=== PATIENT | male | born 1965 | race Caucasian/White ===

== ENCOUNTER 2018-05-04 16:49 | Emergency (ER) | payer MEDICAID, OTHER ==
[~2018-05-04] VITALS: Ht 182.9 cm; Wt 103.0 kg
[~2018-05-04 16:49] MED LIST: ALBU8HFA PO; LEVO25TA7 PO; LISI-600 PO; METF-950 PO; SIMV40TA4 PO
[2018-05-04 17:40] LABS: BASOPHILS # (AUTO) 0.1 X10'3 (0-0.2); BASOPHILS % (AUTO) 1.1 % (0-1); EOSINOPHILS # (AUTO) 0.2 X10'3 (0-0.9); EOSINOPHILS % (AUTO) 3.4 % (0-6); HEMATOCRIT 49.4 % (42.0-52.0); HEMOGLOBIN 16.5 g/dl (14.0-17.9); LYMPHOCYTES # (AUTO) 1.7 X10'3 (1.1-4.8); LYMPHOCYTES % (AUTO) 25.4 % (21-51); MEAN CORPUSCULAR HEMOGLOBIN 29.9 PG (27.0-31.0); MEAN CORPUSCULAR HGB CONC 33.4 % (33.0-36.5); MEAN CORPUSCULAR VOLUME 89.5 FL (78-98); MONOCYTES # (AUTO) 0.5 X10'3 (0-0.9); MONOCYTES % (AUTO) 7.8 % (2-12); NEUTROPHILS # (AUTO) 4.1 X10'3 (1.8-7.7); NEUTROPHILS % (AUTO) 62.3 % (42-75); PLATELET COUNT 330 X10'3 (140-440); RED BLOOD COUNT 5.53 X10'6 (4.70-6.10); RED CELL DISTRIBUTION WIDTH 13.3 % (11.5-14.5); WHITE BLOOD COUNT 6.5 X10'3 (4.5-11.0)
[2018-05-04 17:58] LABS: ALANINE AMINOTRANSFERASE 28 U/L (12-78); ALBUMIN 4.1 G/DL (3.4-5.0); ALBUMIN/GLOBULIN RATIO 1.1 (1.1-1.5); ALKALINE PHOSPHATASE 77 IU/L (46-116); ANION GAP 8 (8-16); ASPARTATE AMINO TRANSFERASE 14 U/L (10-37); BILIRUBIN,TOTAL 0.4 MG/DL (0.1-1.0); BLOOD UREA NITROGEN 11 MG/DL (7-18); BUN/CREATININE RATIO 11.7 (5.4-32.0); CALCIUM 9.4 MG/DL (8.5-10.1); CHLORIDE 104 MMOL/L (99-107); CREATININE 0.94 MG/DL (0.60-1.10); GLUCOSE 106 MG/DL (70-104); SODIUM 140 MMOL/L (135-145); TOTAL CARBON DIOXIDE 27.8 MMOL/L (24-32); TOTAL PROTEIN 7.7 G/DL (6.4-8.2); eGFR 84 ML/MIN
[2018-05-04 19:58] LABS: CLARITY,URINE SLIGHTLY CLOUDY (Clear); COLOR,URINE YELLOW (Yellow); GLUCOSE, URINE NEGATIVE (Neg); KETONES,URINE NEGATIVE (Neg); LEUKOCYTE ESTERASE ,URINE NEGATIVE (Neg); NITRITES, URINE NEGATIVE (Neg); OCCULT BLOOD,URINE LARGE (Neg); PROTEIN,URINE NEGATIVE (Neg); UROBILINOGEN,URINE 0.2 E.U/dL (0.2-1.0)
[2018-05-04 20:01] LABS: UA COLLECTION TYPE VOIDED
[2018-05-04] MEDS ORDERED: ketorolac tromethamine 15mg/ml inj. IM ONE (20:10)
[2018-05-04] MEDS ORDERED: ondansetron 4mg rapidly disintigrating tab PO ONE (20:20)
[2018-05-04] MEDS ORDERED: HYDR-4383 PO (20:22)
[2018-05-04] MEDS ORDERED: ALBU8HFA PO (20:22)
[2018-05-04] MEDS ORDERED: ONDA8TAB9 PO (20:22)
[2018-05-04] MEDS ORDERED: FLO0.4C PO (20:22)
[2018-05-04 20:25] LABS: BACTERIA,URINE FEW /HPF (Neg); MUCUS STRANDS MANY /LPF (Neg); RBC,URINE 20-50 /HPF (0-2); SQUAMOUS EPITHELIAL CELL,UR MODERATE /LPF (FEW); WBC,URINE 0-4 /HPF (0-4)
[2018-05-04] MEDS ORDERED: albuterol 2.5 MG/3 ML nebule NEB ONE (20:40)
[2018-05-04 21:26] VITALS: BP 175/92
== END 2018-05-04 21:27 | disposition home or self-care (01) ==
LOC: ER 16:49
DX: J40 Bronchitis, not specified as acute or chronic (principal); N20.0 Calculus of kidney; R91.1 Solitary pulmonary nodule; I10 Essential (primary) hypertension; E11.9 Type 2 diabetes mellitus without complications; E78.00 Pure hypercholesterolemia, unspecified; Z88.8 Allergy status to other drugs, medicaments and biological substances; Z79.84 Long term (current) use of oral hypoglycemic drugs; Z79.899 Other long term (current) drug therapy
CPT/HCPCS: 36415; 71046; 80053; 81001; 85025; 93005; 94640; 94760; 96372; 99284; J1885

== ENCOUNTER 2019-05-15 10:13 | Emergency (ER) | payer OTHER ==
[~2019-05-15] VITALS: Ht 185.4 cm; Wt 111.4 kg
[~2019-05-15 10:13] MED LIST changes: -ALBU8HFA PO; +HYDR-4383 PO; -LEVO25TA7 PO; -LISI-600 PO; +ONDA8TAB9 PO; -SIMV40TA4 PO
[2019-05-15 10:30] VITALS: BP 154/98
[2019-05-15] MEDS ORDERED: ketorolac trometh inj. 60 MG/2 ML VIAL IM ONE (11:20)
[2019-05-15] MEDS ORDERED: epiNEPHrine inj 0.3 MG in BUPIVAcaine 0.5% inj/PF 29.7 ML SQ ONE (11:30)
[2019-05-15] MEDS ORDERED: BUPIVAcaine 0.5% W/EPI /PF 30ml vial IJ ONE (11:50)
== END 2019-05-15 12:32 | disposition home or self-care (01) ==
LOC: ER 10:15
DX: K02.9 Dental caries, unspecified (principal); E78.00 Pure hypercholesterolemia, unspecified; I10 Essential (primary) hypertension; E11.9 Type 2 diabetes mellitus without complications; Z87.442 Personal history of urinary calculi; Z88.8 Allergy status to other drugs, medicaments and biological substances; Z79.899 Other long term (current) drug therapy
CPT/HCPCS: 64400; 82948; 96372; 99284; J1885

== ENCOUNTER 2021-02-12 17:51 | Emergency (ER) | payer MEDICAID ==
[~2021-02-12] VITALS: Ht 185.4 cm; Wt 85.7 kg
[2021-02-12 18:47] VITALS: BP 129/75
[2021-02-12 19:31] LABS: CLARITY,URINE CLEAR (Clear); COLOR,URINE YELLOW (Yellow); GLUCOSE, URINE 250 mg/dl (Neg); KETONES,URINE NEGATIVE (Neg); LEUKOCYTE ESTERASE ,URINE NEGATIVE (Neg); NITRITES, URINE NEGATIVE (Neg); OCCULT BLOOD,URINE NEGATIVE (Neg); PROTEIN,URINE NEGATIVE (Neg); UA COLLECTION TYPE CLN CATCH MIDSTREAM; UROBILINOGEN,URINE 0.2 E.U/dL (0.2-1.0)
[2021-02-12 19:47] LABS: BASOPHILS # (AUTO) 0.1 X10'3 (0-0.2); BASOPHILS % (AUTO) 0.9 % (0-1); EOSINOPHILS # (AUTO) 0.1 X10'3 (0-0.9); HEMATOCRIT 44.7 % (42.0-52.0); HEMOGLOBIN 14.9 g/dl (14.0-17.9); LYMPHOCYTES # (AUTO) 1.4 X10'3 (1.1-4.8); LYMPHOCYTES % (AUTO) 18.8 % (21-51); MEAN CORPUSCULAR HGB CONC 33.4 g/dL (33.0-36.5); MEAN CORPUSCULAR VOLUME 89.9 FL (78-98); MEAN PLATELET VOLUME 8.7 FL (7.4-10.4); MONOCYTES # (AUTO) 0.5 X10'3 (0-0.9); MONOCYTES % (AUTO) 7.1 % (2-12); NEUTROPHILS # (AUTO) 5.3 X10'3 (1.8-7.7); NEUTROPHILS % (AUTO) 72.2 % (42-75); PLATELET COUNT 293 X10'3 (140-440); RED BLOOD COUNT 4.97 X10'6 (4.70-6.10); RED CELL DISTRIBUTION WIDTH 13.6 % (11.5-14.5); WHITE BLOOD COUNT 7.4 X10'3 (4.5-11.0)
[2021-02-12 20:04] LABS: ALANINE AMINOTRANSFERASE 30 U/L (12-78); ALBUMIN/GLOBULIN RATIO 1.1 (1.1-1.5); ALKALINE PHOSPHATASE 73 IU/L (46-116); ANION GAP 11 (8-16); ASPARTATE AMINO TRANSFERASE 14 U/L (10-37); BILIRUBIN,TOTAL 0.3 MG/DL (0.1-1.0); BLOOD UREA NITROGEN 13 MG/DL (7-18); CALCIUM 8.9 MG/DL (8.5-10.1); CHLORIDE 105 MMOL/L (99-107); CREATININE 1.08 MG/DL (0.60-1.10); GLUCOSE 150 MG/DL (70-104); POTASSIUM 4.1 MMOL/L (3.5-5.1); SODIUM 141 MMOL/L (135-145); TOTAL CARBON DIOXIDE 24.9 MMOL/L (24-32); TOTAL PROTEIN 7.5 G/DL (6.4-8.2); eGFR 71 ML/MIN
[2021-02-12] MEDS ORDERED: CYCL-1 PO (21:18)
[2021-02-12] MEDS ORDERED: IBUP-1984 PO (21:18)
[2021-02-12] MEDS ORDERED: ketorolac tromethamine 15mg/ml inj. IM ONE (21:20)
[2021-02-13] MEDS ORDERED: ONDA4TAB6 PO (15:44)
[2021-02-13] MEDS ORDERED: HYDR-3965 PO (15:44)
== END 2021-02-12 21:42 | disposition home or self-care (01) ==
LOC: ER 17:52
DX: K80.20 Calculus of gallbladder without cholecystitis without obstruction (principal); M54.5 Low back pain; E78.00 Pure hypercholesterolemia, unspecified; I10 Essential (primary) hypertension; E11.9 Type 2 diabetes mellitus without complications; Z87.01 Personal history of pneumonia (recurrent); Z87.442 Personal history of urinary calculi; Z98.890 Other specified postprocedural states; Z88.8 Allergy status to other drugs, medicaments and biological substances; Z79.899 Other long term (current) drug therapy
CPT/HCPCS: 36415; 74176; 80053; 81003; 85025; 96372; 99284; J1885

== ENCOUNTER 2021-02-13 11:56 | Emergency (ER) | payer MEDICAID ==
[~2021-02-13] VITALS: Ht 185.4 cm; Wt 111.3 kg
[~2021-02-13 11:56] MED LIST changes: +CYCL-1 PO; +IBUP-1984 PO
[2021-02-13 12:11] VITALS: BP 125/73
[2021-02-13 13:11] LABS: BASOPHILS # (AUTO) 0.1 X10'3 (0-0.2); BASOPHILS % (AUTO) 1.2 % (0-1); EOSINOPHILS # (AUTO) 0.2 X10'3 (0-0.9); EOSINOPHILS % (AUTO) 2.4 % (0-6); HEMATOCRIT 44.6 % (42.0-52.0); HEMOGLOBIN 14.9 g/dl (14.0-17.9); LYMPHOCYTES # (AUTO) 1.6 X10'3 (1.1-4.8); LYMPHOCYTES % (AUTO) 23.6 % (21-51); MEAN CORPUSCULAR HEMOGLOBIN 30.3 PG (27.0-31.0); MEAN CORPUSCULAR HGB CONC 33.4 g/dL (33.0-36.5); MEAN CORPUSCULAR VOLUME 90.6 FL (78-98); MEAN PLATELET VOLUME 8.6 FL (7.4-10.4); MONOCYTES # (AUTO) 0.7 X10'3 (0-0.9); MONOCYTES % (AUTO) 9.7 % (2-12); NEUTROPHILS # (AUTO) 4.4 X10'3 (1.8-7.7); NEUTROPHILS % (AUTO) 63.1 % (42-75); PLATELET COUNT 286 X10'3 (140-440); RED BLOOD COUNT 4.92 X10'6 (4.70-6.10); RED CELL DISTRIBUTION WIDTH 13.9 % (11.5-14.5)
[2021-02-13 13:20] LABS: ALANINE AMINOTRANSFERASE 35 U/L (12-78); ALBUMIN 3.7 G/DL (3.4-5.0); ALBUMIN/GLOBULIN RATIO 1.1 (1.1-1.5); ALKALINE PHOSPHATASE 86 IU/L (46-116); ANION GAP 8 (8-16); ASPARTATE AMINO TRANSFERASE 16 U/L (10-37); BILIRUBIN,TOTAL 0.2 MG/DL (0.1-1.0); BLOOD UREA NITROGEN 18 MG/DL (7-18); BUN/CREATININE RATIO 18.2 (5.4-32.0); CALCIUM 8.4 MG/DL (8.5-10.1); CHLORIDE 106 MMOL/L (99-107); CREATININE 0.99 MG/DL (0.60-1.10); GLUCOSE 126 MG/DL (70-104); LIPASE 104 U/L (73-393); POTASSIUM 3.8 MMOL/L (3.5-5.1); SODIUM 141 MMOL/L (135-145); TOTAL CARBON DIOXIDE 26.9 MMOL/L (24-32); TOTAL PROTEIN 7.1 G/DL (6.4-8.2); eGFR 78 ML/MIN
[2021-02-13] MEDS ORDERED: ONDA4TAB6 PO (15:44)
[2021-02-13] MEDS ORDERED: HYDR-3965 PO (15:44)
== END 2021-02-13 16:04 | disposition home or self-care (01) ==
LOC: ER 11:56
DX: M54.9 Dorsalgia, unspecified (principal); K80.20 Calculus of gallbladder without cholecystitis without obstruction; E78.00 Pure hypercholesterolemia, unspecified; I10 Essential (primary) hypertension; Z87.01 Personal history of pneumonia (recurrent); E11.9 Type 2 diabetes mellitus without complications; Z87.440 Personal history of urinary (tract) infections; Z98.890 Other specified postprocedural states; Z88.8 Allergy status to other drugs, medicaments and biological substances; Z79.899 Other long term (current) drug therapy
CPT/HCPCS: 36415; 76700; 80053; 83690; 85025; 99284

== ENCOUNTER 2023-03-19 12:36 | Inpatient (IN) | payer MEDICAID ==
[~2023-03-19] VITALS: Ht 185.4 cm; Wt 120.0 kg
[~2023-03-19 12:36] MED LIST changes: -IBUP-1984 PO; +IBUP-1985 PO; +METF-1203 PO; -METF-950 PO; +NIRM1TAB PO; +ONDA4TAB6 PO; +ONDA8TAB13 PO
[2023-03-19 13:48] LABS: BASOPHILS # (AUTO) 0.1 X10'3 (0-0.2); BASOPHILS % (AUTO) 0.6 % (0-1); EOSINOPHILS % (AUTO) 0.1 % (0-6); HEMATOCRIT 46.7 % (42.0-52.0); HEMOGLOBIN 15.6 g/dl (14.0-17.9); LYMPHOCYTES # (AUTO) 1.5 X10'3 (1.1-4.8); LYMPHOCYTES % (AUTO) 10.2 % (21-51); MEAN CORPUSCULAR HEMOGLOBIN 29.5 PG (27.0-31.0); MEAN CORPUSCULAR HGB CONC 33.3 g/dL (33.0-36.5); MEAN CORPUSCULAR VOLUME 88.7 FL (78-98); MONOCYTES % (AUTO) 13.4 % (2-12); NEUTROPHILS # (AUTO) 11.5 X10'3 (1.8-7.7); NEUTROPHILS % (AUTO) 75.7 % (42-75); PLATELET COUNT 376 X10'3 (140-440); RED BLOOD COUNT 5.27 X10'6 (4.70-6.10); RED CELL DISTRIBUTION WIDTH 14.2 % (11.5-14.5); WHITE BLOOD COUNT 15.2 X10'3 (4.5-11.0)
[2023-03-19 14:04] LABS: ALANINE AMINOTRANSFERASE 21 U/L (12-78); ALBUMIN 3.7 G/DL (3.4-5.0); ALBUMIN/GLOBULIN RATIO 0.8 (1.1-1.5); ALKALINE PHOSPHATASE 74 IU/L (46-116); ANION GAP 11 (8-16); ASPARTATE AMINO TRANSFERASE 15 U/L (10-37); BILIRUBIN,TOTAL 0.8 MG/DL (0.1-1.0); BLOOD UREA NITROGEN 12 MG/DL (7-18); CALCIUM 9.8 MG/DL (8.5-10.1); CHLORIDE 96 MMOL/L (99-107); CREATININE 0.92 MG/DL (0.60-1.10); GLUCOSE 134 MG/DL (70-104); POTASSIUM 3.7 MMOL/L (3.5-5.1); SODIUM 130 MMOL/L (135-145); TOTAL CARBON DIOXIDE 23.4 MMOL/L (24-32); TOTAL PROTEIN 8.2 G/DL (6.4-8.2); eCRCL 99 ML/MIN; eGFR 84 ML/MIN
[2023-03-19] MEDS ORDERED: ondansetron 4mg rapidly disintigrating tab PO ONE (14:55)
[2023-03-19] MEDS ORDERED: ringers solution, lacted 1,000 ML IV ONE (14:55)
[2023-03-19 15:30] LABS: ETHANOL < 10 MG/DL (<10)
[2023-03-19] MEDS ORDERED: morphine 2 MG/ML inj. syringe IV PRN (15:35)
[2023-03-19] MEDS ORDERED: morphine 4 MG/ML inj SYRINge IV ONE (15:35)
[2023-03-19] MEDS ORDERED: iohexol 300mg/ml 100ml inj. ONE (15:44)
[2023-03-19] MEDS: MESSAGE TO NURSING PO SCH ×3 (16:15→17:00)
[2023-03-19] MEDS ORDERED: piperacillin/tazo 3.375gm/50ml 50 ML IV ONE (16:35)
[2023-03-19 17:57] LABS: APTT 31 SECONDS (22-32); INR 1.1 INR; PROTHROMBIN TIME 11.3 SECONDS (9.0-12.0)
[2023-03-19] MEDS ORDERED: HYDROmorphone 1 mg/ml syringe IV STA (18:25)
[2023-03-19] MEDS ORDERED: acetaminophen 325mg tablet PO PRN (18:30)
[2023-03-19] MEDS ORDERED: ondansetron/PF 4mg/2ml inj IV PRN (18:30)
[2023-03-19] MEDS ORDERED: potassium Cl 40MEQ/1/2NS 520ml 520 ML IV PRN (18:30)
[2023-03-19] MEDS ORDERED: glucagon, human recombinant 1mg kit SUBCUT PRN (18:30)
[2023-03-19] MEDS ORDERED: dextrose 50%-water 50ml dispensing syringe IV PRN ×2 (18:30)
[2023-03-19] MEDS ORDERED: magnesium 2GM in 50ml NS 50 ML IV PRN (18:30)
[2023-03-19] MEDS ORDERED: mag hydrox/Alum hydrox/simeth 30ml oral suspension PO PRN (18:30)
[2023-03-19] MEDS ORDERED: HYDROmorphone inj. 0.5 MG/0.5 ML DISP.SYRIN IV PRN (18:30)
[2023-03-19] MEDS ORDERED: DEXTROSE 15 GM of carb/4 tabs (each vial/BOTTLE has 4 tablets) PO PRN ×2 (18:30)
[2023-03-19] MEDS ORDERED: insulin Lispro (HumaLOG) vial - multi-dose SQ SCH (18:30)
[2023-03-19] MEDS ORDERED: magnesium 4gm in 100ml NS 100 ML IV PRN (18:30)
[2023-03-19] MEDS ORDERED: potassium Cl 20 mEq SR tablet PO PRN ×2 (18:30)
[2023-03-19] MEDS ORDERED: MESSAGE TO PHARMACY PO ONE (18:30)
[2023-03-19] MEDS: normal saline 1000ml 1,000 ML IV SCH (18:59)
[2023-03-19] MEDS: docusate sod 100mg capsule PO SCH (19:41)
[2023-03-19] MEDS: K and/or MAG REPLACEMENT MC SCH (19:42)
[2023-03-19] MEDS: insulin glargine (Lantus) pen - multi-dose SQ SCH (21:00)
[2023-03-19] MEDS: enoxaparin 40mg/0.4ml syringe SQ SCH (21:05)
[2023-03-19 21:18] LABS: BILIRUBIN,URINE NEGATIVE (Neg); COLOR,URINE YELLOW (Yellow); GLUCOSE, URINE NEGATIVE (Neg); KETONES,URINE TRACE mg/dl (Neg); LEUKOCYTE ESTERASE ,URINE NEGATIVE (Neg); NITRITES, URINE NEGATIVE (Neg); OCCULT BLOOD,URINE TRACE-INTACT (Neg); PH,URINE 6.5 (4.8-8.0); PROTEIN,URINE TRACE mg/dl (Neg)
[2023-03-19 21:22] LABS: CLARITY,URINE SLIGHTLY CLOUDY (Clear); UA COLLECTION TYPE CLN CATCH MIDSTREAM
[2023-03-19 21:27] LABS: URINE AMPHETAMINE SCREEN NEGATIVE (Neg); URINE BARBITUATE SCREEN NEGATIVE (Neg); URINE BENZODIAZEPINES SCREEN NEGATIVE (Neg); URINE CANNABINOID SCREEN POSITIVE (Neg); URINE COCAINE SCREEN POSITIVE (Neg); URINE METHADONE SCREEN NEGATIVE (Neg); URINE OPIATE SCREEN POSITIVE (Neg); URINE PHENCYCLIDINE SCREEN NEGATIVE (Neg)
[2023-03-19 21:29] LABS: BACTERIA,URINE FEW /HPF (Neg); RBC,URINE 0-2 /HPF (0-2); WBC,URINE 0-4 /HPF (0-4)
[2023-03-19 21:30] LABS: MUCUS STRANDS FEW /LPF (Neg); SQUAMOUS EPITHELIAL CELL,UR FEW /LPF (FEW)
[2023-03-20] VITALS (20 sets, daily range): BP systolic 141–188; BP diastolic 55–94; PULSE 66–85; RESP 12–21; TEMP 97.6–99.3; O2SAT 93–100
--- NOTE | 2023-03-20 00:06 | NUR ---
CALLED TO GIVE REPORT ON PATIENT TO RECEIVING NURSE. TOLD THAT THE NURSE WOULD CALL BACK TO RECEIVE REPORT.
--- NOTE | 2023-03-20 01:02 | NUR ---
Report received from Annette CHASE. Pt arrived to unit at 1245. MRSA swab and skin check performed. IV fluids infusing, BLL, siderails x2, call mann within reach, all needs met at this time.
[2023-03-20] MEDS: HYDROmorphone 1 mg/ml syringe IV PRN ×4 (01:38→16:14)
[2023-03-20] MEDS: piperacillin/tazo 4.5gm/100ml 100 ML IV SCH ×3 (01:42→16:10)
[2023-03-20] MEDS: K and/or MAG REPLACEMENT MC SCH ×2 (06:32→20:00)
[2023-03-20] MEDS: normal saline 1000ml 1,000 ML IV SCH ×2 (07:05→14:18)
[2023-03-20 07:11] LABS: BASOPHILS # (AUTO) 0.1 X10'3 (0-0.2); BASOPHILS % (AUTO) 0.6 % (0-1); EOSINOPHILS # (AUTO) 0.1 X10'3 (0-0.9); EOSINOPHILS % (AUTO) 0.6 % (0-6); HEMATOCRIT 40.4 % (42.0-52.0); HEMOGLOBIN 13.7 g/dl (14.0-17.9); LYMPHOCYTES # (AUTO) 1.2 X10'3 (1.1-4.8); LYMPHOCYTES % (AUTO) 11.5 % (21-51); MEAN CORPUSCULAR HEMOGLOBIN 30.2 PG (27.0-31.0); MEAN CORPUSCULAR HGB CONC 33.9 g/dL (33.0-36.5); MEAN CORPUSCULAR VOLUME 89.2 FL (78-98); MEAN PLATELET VOLUME 8.9 FL (7.4-10.4); MONOCYTES # (AUTO) 1.1 X10'3 (0-0.9); NEUTROPHILS # (AUTO) 7.8 X10'3 (1.8-7.7); NEUTROPHILS % (AUTO) 76.3 % (42-75); PLATELET COUNT 265 X10'3 (140-440); RED BLOOD COUNT 4.53 X10'6 (4.70-6.10); RED CELL DISTRIBUTION WIDTH 13.8 % (11.5-14.5); WHITE BLOOD COUNT 10.2 X10'3 (4.5-11.0)
[2023-03-20 07:16] LABS: ALANINE AMINOTRANSFERASE 17 U/L (12-78); ALBUMIN 2.9 G/DL (3.4-5.0); ALBUMIN/GLOBULIN RATIO 0.8 (1.1-1.5); ALKALINE PHOSPHATASE 57 IU/L (46-116); ANION GAP 8 (8-16); ASPARTATE AMINO TRANSFERASE 16 U/L (10-37); BILIRUBIN,TOTAL 0.7 MG/DL (0.1-1.0); BLOOD UREA NITROGEN 15 MG/DL (7-18); BUN/CREATININE RATIO 16.9 (10.0-20.0); CALCIUM 9.1 MG/DL (8.5-10.1); CHLORIDE 101 MMOL/L (99-107); CREATININE 0.89 MG/DL (0.60-1.10); GLUCOSE 113 MG/DL (70-104); MAGNESIUM 2.2 MG/DL (1.5-2.4); POTASSIUM 3.9 MMOL/L (3.5-5.1); SODIUM 133 MMOL/L (135-145); TOTAL CARBON DIOXIDE 24.5 MMOL/L (24-32); TOTAL PROTEIN 6.6 G/DL (6.4-8.2); eCRCL 102 ML/MIN; eGFR 88 ML/MIN
[2023-03-20] MEDS: docusate sod 100mg capsule PO SCH ×2 (09:01→20:00)
[2023-03-20] MEDS: MESSAGE TO NURSING PO SCH (09:01)
--- NOTE | 2023-03-20 09:13 | NUR ---
DR VAZ ASKED ME TO PUT IN NPO NOW ORDER FOR SX THIS AFTERNOON
[2023-03-20] MEDS ORDERED: ondansetron/PF 4mg/2ml inj IV PRN ×2 (16:20→22:35)
[2023-03-20] MEDS ORDERED: morphine 4 MG/ML inj SYRINge IV PRN (16:20)
[2023-03-20] MEDS ORDERED: ringers solution, lacted 1,000 ML IV SCH (16:20)
[2023-03-20] MEDS ORDERED: meperidine/PF 25mg/ml syringe IV PRN ×3 (16:20)
[2023-03-20] MEDS ORDERED: proCHLORperazine 10 MG/2 ml inj IV PRN (16:20)
[2023-03-20] MEDS ORDERED: morphine 2 MG/ML inj. syringe IV PRN (16:20)
[2023-03-20] MEDS ORDERED: hydrALAZINE 20mg/ml inj. IV PRN ×2 (16:55→22:45)
[2023-03-20] MEDS: enoxaparin 40mg/0.4ml syringe SQ SCH (20:00)
[2023-03-20] MEDS ORDERED: sevoflurane 250ml liquid IH ONE (20:36)
[2023-03-20] MEDS ORDERED: neostigmine methylsulfate 1 MG/ML 10ml vial ONE (20:36)
[2023-03-20] MEDS ORDERED: fentaNYL/PF 50MCG/1 ML 2ML syringe ONE (20:42)
[2023-03-20] MEDS ORDERED: midazolam 1 mg/ML 2ml injection ONE (20:43)
[2023-03-20] MEDS ORDERED: meperidine/PF 25mg/ml syringe ONE (20:44)
[2023-03-20] MEDS ORDERED: rocuronium 10mg/ml inj IV ONE (20:49)
[2023-03-20] MEDS ORDERED: dexamethasone sod phosphate 4mg/ml inj. ONE (20:55)
[2023-03-20] MEDS ORDERED: BUPIVAcaine/PF 2.5 mg/ml (0.25%) 30ml vial ONE (20:57)
[2023-03-20] MEDS: insulin glargine (Lantus) pen - multi-dose SQ SCH (21:00)
[2023-03-20] MEDS ORDERED: BUPIVAcaine/PF 2.5 mg/ml (0.25%) 30ml vial IJ ONE (21:24)
[2023-03-20] MEDS ORDERED: propofol inj 20 ML IV ONE (22:22)
[2023-03-20] MEDS ORDERED: LIDOcaine 2% (20mg/ml) 5ml vial ONE (22:23)
[2023-03-20] MEDS ORDERED: ondansetron/PF 4mg/2ml inj ONE (22:23)
[2023-03-20] MEDS ORDERED: acetaminophen 1,000mg/100ml IV 100 ML IV ONE (22:25)
[2023-03-20] MEDS ORDERED: ketorolac trometh. 30mg/ml inj. ONE (22:25)
[2023-03-20] MEDS ORDERED: glycopyrrolate 0.2mg/ml inj ONE (22:25)
[2023-03-20] MEDS ORDERED: naloxone 0.4 mg/ml inj IV PRN (22:35)
--- NOTE | 2023-03-20 22:38 | NUR ---
Received from OR via hospital bed, accompanied by Anesthesiologist and report given by JAYESH Anesthesiologist. PATIENT WAKING UP, DENIES PAIN, V/S WNL, SCD ON , PIV 20G VAUGHN SERNA SITES CLOSED C/D/I TO ABDOMEN. Addendum: 03/20/23 at 2251 by Jameel Wilson RN Amended: Links added.
[2023-03-20] MEDS ORDERED: labetalol 20mg/4ml (5mg/ml) syringe IV PRN (22:45)
--- NOTE | 2023-03-20 23:18 | NUR ---
PATIENT HAS MET ALL CRITERIA FOR TRANSFER TO PCU FLOOR. VSS. DRESSINGS INTACT. BED LOW, CALL LIGHT PRESENT AND 2 RAILS UP. RN PRESENT TO ACCEPT CARE OF PATIENT AND REPORT HAS BEEN CALLED. ALL QUESTIONS ANSWERED TO ACCEPTING RN. Addendum: 03/20/23 at 5317 by Jameel Wilson RN Amended: Links added.
[2023-03-21] VITALS (8 sets, daily range): BP systolic 126–165; BP diastolic 62–95; PULSE 70–88; RESP 15–19; TEMP 98.1–99.1; O2SAT 92–96
[2023-03-21] MEDS: normal saline 1000ml 1,000 ML IV SCH ×2 (00:30→10:30)
[2023-03-21] MEDS: HYDROcodone/acetaminophen 10/325mg tab PO PRN ×2 (02:02→10:54)
[2023-03-21] MEDS: piperacillin/tazo 4.5gm/100ml 100 ML IV SCH ×2 (03:18→08:08)
--- NOTE | 2023-03-21 03:30 | NUR ---
I AGREE WITH SEBASTIEN TORO's ASSESSMENT
--- NOTE | 2023-03-21 06:15 | NUR ---
Problems reprioritized. Patient report given to Fantasma CHASE questions answered & plan of care reviewed with .
[2023-03-21] MEDS: K and/or MAG REPLACEMENT MC SCH (06:40)
[2023-03-21] MEDS: MESSAGE TO NURSING PO SCH (06:41)
[2023-03-21 06:47] LABS: BASOPHILS % (AUTO) 0.1 % (0-1); EOSINOPHILS % (AUTO) 0 % (0-6); HEMATOCRIT 40.7 % (42.0-52.0); HEMOGLOBIN 13.8 g/dl (14.0-17.9); LYMPHOCYTES # (AUTO) 0.4 X10'3 (1.1-4.8); LYMPHOCYTES % (AUTO) 4.3 % (21-51); MEAN CORPUSCULAR HEMOGLOBIN 29.9 PG (27.0-31.0); MEAN PLATELET VOLUME 8.7 FL (7.4-10.4); MONOCYTES # (AUTO) 0.3 X10'3 (0-0.9); MONOCYTES % (AUTO) 3.7 % (2-12); NEUTROPHILS # (AUTO) 8.2 X10'3 (1.8-7.7); NEUTROPHILS % (AUTO) 91.9 % (42-75); PLATELET COUNT 331 X10'3 (140-440); RED BLOOD COUNT 4.62 X10'6 (4.70-6.10); RED CELL DISTRIBUTION WIDTH 13.6 % (11.5-14.5); WHITE BLOOD COUNT 8.9 X10'3 (4.5-11.0)
[2023-03-21 07:05] LABS: ALBUMIN 2.8 G/DL (3.4-5.0); ANION GAP 7 (8-16); BILIRUBIN,TOTAL 0.7 MG/DL (0.1-1.0); BLOOD UREA NITROGEN 16 MG/DL (7-18); BUN/CREATININE RATIO 16.3 (10.0-20.0); CALCIUM 8.9 MG/DL (8.5-10.1); CHLORIDE 99 MMOL/L (99-107); CREATININE 0.98 MG/DL (0.60-1.10); GLUCOSE 217 MG/DL (70-104); POTASSIUM 3.9 MMOL/L (3.5-5.1); SODIUM 131 MMOL/L (135-145); TOTAL CARBON DIOXIDE 25.2 MMOL/L (24-32); TOTAL PROTEIN 6.7 G/DL (6.4-8.2); eCRCL 93 ML/MIN; eGFR 79 ML/MIN
[2023-03-21 07:06] LABS: ALANINE AMINOTRANSFERASE 42 U/L (12-78); ALBUMIN/GLOBULIN RATIO 0.7 (1.1-1.5); ALKALINE PHOSPHATASE 71 IU/L (46-116); ASPARTATE AMINO TRANSFERASE 37 U/L (10-37)
[2023-03-21] MEDS: HYDROmorphone 1 mg/ml syringe IV PRN (08:08)
[2023-03-21] MEDS: docusate sod 100mg capsule PO SCH (08:08)
[2023-03-21] MEDS ORDERED: HYDR-3972 PO ×2 (15:52)
[2023-03-22] MEDS ORDERED: HYDR-3965 PO (09:11)
[2023-03-22] MEDS ORDERED: HYDR-3972 PO (19:18)
== END 2023-03-21 16:44 | disposition home or self-care (01) | DRG 710 ==
LOC: ER 12:37 → ED HOLD 18:32 → PCU 3S 03-20 00:35
PROVIDERS: ADMIT Family Medicine; ATTEND Family Medicine
PROC: 8E0W4CZ Robotic Assisted Procedure of Trunk Region, Percutaneous Endoscopic Approach (ICD-10-PCS; 2023-03-20)
PROC: 0FT44ZZ Resection of Gallbladder, Percutaneous Endoscopic Approach (ICD-10-PCS; principal; 2023-03-20 20:36)
DX: A41.9 Sepsis, unspecified organism (principal); K80.01 Calculus of gallbladder with acute cholecystitis with obstruction; K66.0 Peritoneal adhesions (postprocedural) (postinfection); E78.00 Pure hypercholesterolemia, unspecified; I10 Essential (primary) hypertension; E11.9 Type 2 diabetes mellitus without complications; E87.1 Hypo-osmolality and hyponatremia; Z88.8 Allergy status to other drugs, medicaments and biological substances; Z79.899 Other long term (current) drug therapy; Z87.442 Personal history of urinary calculi; Z82.49 Family history of ischemic heart disease and other diseases of the circulatory system
CPT/HCPCS: 36415; 74177; 76700; 80053; 80305; 80320; 81001; 82948; 83605; 83735; 85025; 85610; 85730; 87040; 87081; 93005; 96361; 96365; 96375; 99285; A4215; A4618; A6402; A7000; C1758; G0378; J0131; J1100; J1170; J1650; J1815; J1885; J2175; J2250; J2270; J2405; J2543; J2704; J2710; J3010; J3490; J7030; J7120; Q9967

== ENCOUNTER 2023-03-22 18:24 | Emergency (ER) | payer MEDICAID ==
[~2023-03-22] VITALS: Ht 185.4 cm; Wt 98.4 kg
[~2023-03-22 18:24] MED LIST changes: -CYCL-1 PO; +HYDR-3965 PO; +HYDR-3972 PO; -HYDR-4383 PO; -IBUP-1985 PO; -NIRM1TAB PO; -ONDA4TAB6 PO; -ONDA8TAB13 PO; -ONDA8TAB9 PO
[2023-03-22] MEDS ORDERED: HYDROmorphone 1 mg/ml syringe IM ONE (19:15)
[2023-03-22] MEDS ORDERED: HYDR-3972 PO (19:18)
[2023-03-22 20:13] VITALS: BP 136/88; PULSE 88; TEMP 97.6; O2SAT 95
[2023-03-22 20:17] VITALS: RESP 16
--- NOTE | 2023-03-22 20:53 | NUR ---
AGREE WITH SPACE OFFICER ASSESSMENT. PT IN STABLE CONDITION.
== END 2023-03-22 20:53 | disposition home or self-care (01) ==
LOC: ER 18:24
DX: G89.18 Other acute postprocedural pain (principal); E78.00 Pure hypercholesterolemia, unspecified; I10 Essential (primary) hypertension; E11.9 Type 2 diabetes mellitus without complications; Z90.49 Acquired absence of other specified parts of digestive tract; Z87.442 Personal history of urinary calculi; Z79.899 Other long term (current) drug therapy; Z88.8 Allergy status to other drugs, medicaments and biological substances
CPT/HCPCS: 96372; 99283; J1170; A6212; A6258; A6449

== ENCOUNTER 2023-05-28 16:01 | Emergency (ER) | payer MEDICAID ==
[~2023-05-28] VITALS: Ht 182.9 cm; Wt 107.4 kg
[~2023-05-28 16:01] MED LIST changes: -HYDR-3965 PO; -HYDR-3972 PO
[2023-05-28 16:06] VITALS: TEMP 97.7
[2023-05-28 16:46] LABS: BILIRUBIN,URINE NEGATIVE (Neg); CLARITY,URINE CLOUDY (Clear); COLOR,URINE YELLOW (Yellow); GLUCOSE, URINE 100 mg/dl (Neg); KETONES,URINE NEGATIVE (Neg); LEUKOCYTE ESTERASE ,URINE NEGATIVE (Neg); NITRITES, URINE NEGATIVE (Neg); OCCULT BLOOD,URINE LARGE (Neg); PH,URINE 5.5 (4.8-8.0); PROTEIN,URINE NEGATIVE (Neg); UROBILINOGEN,URINE 0.2 E.U/dL (0.2-1.0)
[2023-05-28 16:47] LABS: UA COLLECTION TYPE CLN CATCH MIDSTREAM
[2023-05-28 16:52] LABS: MUCUS STRANDS FEW /LPF (Neg); SQUAMOUS EPITHELIAL CELL,UR FEW /LPF (FEW)
[2023-05-28 16:53] LABS: BACTERIA,URINE 2+ /HPF (Neg); RBC,URINE TNTC /HPF (0-2); WBC,URINE 0-4 /HPF (0-4)
[2023-05-28] MEDS ORDERED: ondansetron/PF 4mg/2ml inj IV ONE ×2 (17:45→19:00)
[2023-05-28] MEDS ORDERED: morphine 4 MG/ML inj SYRINge IV ONE ×2 (17:45→19:00)
[2023-05-28 17:59] LABS: HEMOGLOBIN 13.8 g/dl (14.0-17.9); WHITE BLOOD COUNT 6.9 X10'3 (4.5-11.0)
[2023-05-28 18:02] LABS: BASOPHILS # (AUTO) 0.1 X10'3 (0-0.2); BASOPHILS % (AUTO) 1.7 % (0-1); EOSINOPHILS # (AUTO) 0.1 X10'3 (0-0.9); EOSINOPHILS % (AUTO) 1.4 % (0-6); HEMATOCRIT 40.8 % (42.0-52.0); LYMPHOCYTES # (AUTO) 1.8 X10'3 (1.1-4.8); LYMPHOCYTES % (AUTO) 25.8 % (21-51); MEAN CORPUSCULAR HEMOGLOBIN 30.2 PG (27.0-31.0); MEAN CORPUSCULAR HGB CONC 33.9 g/dL (33.0-36.5); MEAN PLATELET VOLUME 8.9 FL (7.4-10.4); MONOCYTES # (AUTO) 0.7 X10'3 (0-0.9); MONOCYTES % (AUTO) 9.5 % (2-12); NEUTROPHILS # (AUTO) 4.3 X10'3 (1.8-7.7); NEUTROPHILS % (AUTO) 61.6 % (42-75); PLATELET COUNT 293 X10'3 (140-440); RED BLOOD COUNT 4.58 X10'6 (4.70-6.10); RED CELL DISTRIBUTION WIDTH 13.6 % (11.5-14.5)
[2023-05-28 18:10] LABS: ALANINE AMINOTRANSFERASE 33 U/L (12-78); ALBUMIN 3.6 G/DL (3.4-5.0); ALBUMIN/GLOBULIN RATIO 1.1 (1.1-1.5); ALKALINE PHOSPHATASE 93 IU/L (46-116); ANION GAP 10 (8-16); ASPARTATE AMINO TRANSFERASE 14 U/L (10-37); BILIRUBIN,TOTAL 0.1 MG/DL (0.1-1.0); BLOOD UREA NITROGEN 17 MG/DL (7-18); BUN/CREATININE RATIO 17.2 (10.0-20.0); CALCIUM 8.6 MG/DL (8.5-10.1); CHLORIDE 104 MMOL/L (99-107); CREATININE 0.99 MG/DL (0.60-1.10); GLUCOSE 145 MG/DL (70-104); LIPASE 41 U/L (16-77); POTASSIUM 3.7 MMOL/L (3.5-5.1); SODIUM 138 MMOL/L (135-145); TOTAL CARBON DIOXIDE 24.5 MMOL/L (24-32); eCRCL 88 ML/MIN; eGFR 77 ML/MIN
[2023-05-28] MEDS ORDERED: IOHEXOL 12MG/ML oral solution 500 ML BOTTLE PO ONE (18:50)
[2023-05-28] MEDS ORDERED: iohexol 300mg/ml 100ml inj. ONE (20:16)
[2023-05-28] MEDS ORDERED: glycerin ADULT rectal suppository RC ONE (21:30)
[2023-05-28] MEDS ORDERED: normal saline 1000ml 1,000 ML IV ONE (21:30)
[2023-05-28] MEDS ORDERED: magnesium citrate 296ml oral solution PO ONE (21:30)
[2023-05-28] MEDS ORDERED: lactulose 20gm/30ml cup PO ONE (21:30)
[2023-05-28] MEDS ORDERED: bisacodyl 10mg suppository rectal RC ONE (21:55)
[2023-05-28 22:00] VITALS: BP 133/75; PULSE 84; RESP 17; O2SAT 99
[2023-05-28] MEDS ORDERED: METF-436 PO ×3 (22:50→22:51)
== END 2023-05-28 23:04 | disposition home or self-care (01) ==
LOC: ER 16:03
DX: R31.9 Hematuria, unspecified (principal); K59.00 Constipation, unspecified; E11.9 Type 2 diabetes mellitus without complications; E78.00 Pure hypercholesterolemia, unspecified; Z87.442 Personal history of urinary calculi; Z88.8 Allergy status to other drugs, medicaments and biological substances; Z79.899 Other long term (current) drug therapy
CPT/HCPCS: 36415; 74176; 74177; 80053; 81001; 82948; 83605; 83690; 85025; 96374; 96375; 96376; 99285; J2270; J2405; J3490; J7030; Q9967

== ENCOUNTER 2023-06-11 17:21 | Emergency (ER) | payer MEDICAID ==
[~2023-06-11] VITALS: Ht 182.9 cm; Wt 108.2 kg
[~2023-06-11 17:21] MED LIST changes: +METF-436 PO
[2023-06-11 17:35] VITALS: BP 134/62; PULSE 84; RESP 16; TEMP 98.1; O2SAT 99
[2023-06-11 18:02] LABS: BILIRUBIN,URINE NEGATIVE (Neg); CLARITY,URINE CLOUDY (Clear); COLOR,URINE YELLOW (Yellow); GLUCOSE, URINE NEGATIVE (Neg); KETONES,URINE NEGATIVE (Neg); LEUKOCYTE ESTERASE ,URINE NEGATIVE (Neg); NITRITES, URINE NEGATIVE (Neg); OCCULT BLOOD,URINE LARGE (Neg); PROTEIN,URINE NEGATIVE (Neg); UROBILINOGEN,URINE 0.2 E.U/dL (0.2-1.0)
[2023-06-11 18:12] LABS: UA COLLECTION TYPE CLN CATCH MIDSTREAM
[2023-06-11 18:19] LABS: RBC,URINE TNTC /HPF (0-2)
[2023-06-11 18:20] LABS: MUCUS STRANDS FEW /LPF (Neg); WBC,URINE 0-4 /HPF (0-4)
[2023-06-11 18:21] LABS: BACTERIA,URINE FEW /HPF (Neg)
[2023-06-11 18:22] LABS: SQUAMOUS EPITHELIAL CELL,UR FEW /LPF (FEW)
[2023-06-11 18:23] LABS: TRANSITIONAL EPI CELLS,URINE FEW /HPF
== END 2023-06-11 17:53 | disposition left against medical advice (07) ==
LOC: ER 17:22
DX: R10.11 Right upper quadrant pain (principal); Z53.21 Procedure and treatment not carried out due to patient leaving prior to being seen by health care provider
CPT/HCPCS: 81001; 99281; 99283

== ENCOUNTER 2025-01-30 08:33 | Inpatient (IN) | payer MEDICAID ==
[~2025-01-30] VITALS: Ht 185.4 cm; Wt 131.8 kg
--- NOTE | 2025-01-30 09:03 | ELECTROCARDIOGRAPH REPORT ---
[facility] Test Date: 2025-01-30 Test Time: 09:00:15 Pat Name: NADER AGUIRRE Department: [facility] Patient ID: [facility]-[id number] Room: Gender: M Improvement Coordinator: : 1965 Requested By: DONG WAITE Order Number: [id number] Reading MD: Dr. Dong Waite Measurements Intervals [place] Rate: 88 P: 49 [place]: 165 QRS: 68 QRSD: 87 T: 43 QT: 360 QTc: 436 Interpretive Statements Sinus rhythm Electronically Signed On 01-30-2025 10:27:[address] Dong Waite Please click the below link to view image of tracing.
[2025-01-30 09:16] LABS: MEAN PLATELET VOLUME 8.1 FL (7.4-10.4); RED CELL DISTRIBUTION WIDTH 13.8 % (11.5-14.5)
--- NOTE | 2025-01-30 09:30 | RADIOLOGY REPORT ---
CHEST RADIOGRAPH Indication: CP Technique: DI CHEST,SINGLE VIEW Comparison: None FINDINGS: The cardiac silhouette is unremarkable. The lungs demonstrate no pulmonary airspace consolidation. 3 mm right lower lobe calcified nodule, consistent with remote granulomatous disease. The pulmonary vas culature is unremarkable. There is no pleural effusion. There is no pneumothorax. IMPRESSION: No pulmonary airspace consolidation.
[2025-01-30 09:35] LABS: CREATININE 0.99 MG/DL (0.60-1.10); TOTAL CARBON DIOXIDE 22.9 MMOL/L (24-32); eCRCL 90 ML/MIN; eGFR 77 ML/MIN
[2025-01-30 09:57] LABS: PRO BRAIN NATRIURETIC PEPTIDE < 30 PG/ML (0-125)
--- NOTE | 2025-01-30 10:44 | Physician Documentation ---
History of Present Illness ~ Chief Complaint: Foot pain Stated Complaint: SWOLLEN FOOT, RASH Time Seen by MD: 09:08 OK to notify your PCP?: Yes Primary Medical Doctor: [facility] Source: patient, RN/, RN notes reviewed Mode of Arrival: Ambulatory Exam Limitations: no limitations HPI Was patient has been out of his medications for a month and he has been having worsening for extremity edema as well as fatigue weakness. In fact he came in because his legs are starting to have a rash from him scratching most likely but just profound weakness. He states he has trouble sleeping at night but that is kind of his baseline. He was with his daughter the other day pushing her on the swings and just had chest tightness difficulty breathing and complete fatigue he has total exercise intolerance as of late. He denies any palpitations dizziness or actual chest pain. He has not taken any blood pressure medications or his diabetic medications for over a month. He just came in because he is not feeling well he is here for evaluation and care he has no other complaints at this time. Tetanus witin 5 years: Yes Medication Reconciliation Allergies: Coded Allergies: glyburide (Verified Allergy, Unknown, 01/30/25) Scheduled Metformin HCl (Metformin HCl), 1 TAB PO TID, (Reported) Metformin Hcl (Metformin Hcl), 1 TAB PO Q12H Past Medical History Past Medical History: High Cholesterol, Hypertension, Bronchitis, Pneumonia, Hernia, Kidney Stones, Diabetes Past Surgical History: cholecystectomy, other Other Past Surgical History: hernia repair Patient History: FH: CVA (cerebrovascular accident) PGF FH: myocardial infarction FATHER Alcohol Use: None Drug Use: none Lives In: Home Review of Systems All Other Systems at this time: Reviewed and Negative Physical Exam Vital Signs: RN Vital Signs have been reviewed: Yes, Temperature: 98.4, Source: Temporal, Heart Rate: 86, Respiratory Rate: 13, BP: 139/92, Pulse Oximetry: 96, Weight: 131.800 Oxygen Flow Rate: 0 Physical Exam General: The patient is well developed, well nourished, nontoxic appearing and is in no acute distress. Skin: [place], warm and dry with no rashes. HEENT: Head was normocephalic and atraumatic. Eyes - pupils equal, round, reactive to light and accommodation. Extraocular movements were intact. Conjunctivae were nonicteric. . The mouth and oropharynx were clear with moist mucous membranes. There were no pharyngeal exudates or erythema. Neck: Supple and nontender. There was no jugular venous distention, lymphadenopathy, thyromegaly or masses. Chest: Clear to auscultation bilaterally without wheezes, rales or rhonchi. No accessory muscle use. No dullness to percussion. Heart: Rate regular and rhythmic. S1, S2. No murmurs. Palpation of the chest wall was normal. No rubs or thrills. Abdomen: Soft, nontender and nondistended. Positive bowel sounds. No guarding or rebound. No hepatosplenomegaly or palpable masses. Extremities: No cyanosis, clubbing or 2+ pitting edema. The patient moves all extremities. Pulses were equal and symmetric. Neurologic: Motor sensory grossly intact Psychologic: The patient was oriented to person, place and time. The patient demonstrated appropriate judgement and insight. Progress Progress Note 11:20 a.m. discussed the case with the hospitalist Dr. Galvan team Results/Orders Reviewed/noted all lab results: Yes Results/Orders Orders - CELSO AKERS MD Chest,Single View (01/30/25 08:53) Monitor (01/30/25 08:53) Saline Lock (01/30/25 08:53) Oxygen (01/30/25 08:53) Electrocardiogram (01/30/25 08:53) Hs Troponin I W Calculations (01/30/25 12:46) Hs Troponin I W Calculations (01/30/25 13:46) Page Hospitalist (01/30/25 10:46) Fill Out Med Reconciliation (01/30/25 10:46) Echocardiogram (01/30/25 11:01) Completed Orders - CELSO AKERS MD Chest,Single View (01/30/25 08:53) Cbc/Diff (01/30/25 08:53) BMP (01/30/25 08:53) PBNP (01/30/25 08:53) Electrocardiogram (01/30/25 08:53) Hs Troponin I W Calculations (01/30/25 10:39) Aspirin 81mg Chew Tablet (Aspirin 81mg C (01/30/25 10:50) Liver Panel (01/30/25 10:47) Furosemide Inj (Lasix Inj) (01/30/25 11:05) Metformin Tablet (Glucophage Tablet) (01/30/25 11:05) Medications Received in ER Medications (Trade) Dose Ordered Sig/Jovita Route PRN Reason Start Time Stop Time Status Last Admin Dose Admin (aspirin 81MG chew tablet) 324 mg ONCE ONCE PO 01/30/25 10:50 01/30/25 10:51 DC 01/30/25 10:54 324 MG Vital Signs 01/30/25 01/30/25 01/30/25 01/30/25 08:47 09:04 09:35 10:35 Temp 98.4 Pulse 95 86 81 Resp 18 13 12 B/P (MAP) 167/104 139/92 (108) 133/99 (110) Pulse Ox 95 96 97 O2 Flow Rate 0 0 0 Laboratory Tests Test 01/30/25 09:06 01/30/25 09:07 White Blood Count 6.7 Red Blood Count 4.89 Hemoglobin 14.7 Hematocrit 43.1 Mean Corpuscular Volume 88.1 Mean Corpuscular Hemoglobin 30.1 Mean Corpuscular Hemoglobin Concent 34.2 Red Cell Distribution Width 13.8 Platelet Count 282 Mean Platelet Volume 8.1 Neutrophils (%) (Auto) 60.2 Lymphocytes (%) (Auto) 27.7 Monocytes (%) (Auto) 9.6 Eosinophils (%) (Auto) 2.0 Basophils (%) (Auto) 0.5 Neutrophils # (Auto) 4.0 Lymphocytes # (Auto) 1.8 Monocytes # (Auto) 0.6 Eosinophils # (Auto) 0.1 Basophils # (Auto) 0.0 CBC Comment Sodium Level 137 Potassium Level 4.1 Chloride Level 105 Carbon Dioxide Level 22.9 L Anion Gap 9 Blood Urea Nitrogen 13 Creatinine 0.99 Estimated GFR/1.73 m2 77 BUN/Creatinine Ratio 13.1 Glucose Level 138 H Calcium Level 8.8 Total Bilirubin 0.5 Direct Bilirubin 0.1 Aspartate Amino Transf (AST/SGOT) 18 Alanine Aminotransferase (ALT/SGPT) 26 Alkaline Phosphatase 77 Troponin I High Sensitivity 5 Pro-B-Type Natriuretic Peptide < 30 Total Protein 7.4 Albumin 3.9 Globulin 3.5 Albumin/Globulin Ratio 1.1 Chemistry Comments Glucometer 135 H Re-Evaluation Re-Evaluation : Re-Evaluation: Unchanged Progress Patient was seen and examined. Patient is given reassurance. Patient has been having significant fatigue and weakness. Also he has been noncompliant with his medications for over a month both with hypertensive meds and diabetes meds showing signs of heart failure dependent edema and signs of fatigue weakness possible cardiac etiology for unstable angina. Patient received aspirin. Also he was started with Lasix and given some metformin. Laboratory work is reassuring with a normal CBC chemistry is also normal with a negative troponin electrolytes are within normal limits slight metabolic acidosis with a CO2 of 22 but otherwise within normal limits. Patient was then admitted to the hospitalist service for further workup and care. Continuous threat monitoring analyst interpretation shows normal sinus rhythm heart rate 90s, no ectopy, normal, my interpretation. Pulse oximetry monitor interpretation shows normal oxygenation at 96% room air, normal, my interpretation. EKG/XRAY/CT/US/VASC/MRI EKG : Intepreting Monitor?: Yes Additional Comment [facility] Test Date: 2025-01-30 Test Time: 09:00:15 Pat Name: NADER AGUIRRE Department: [facility]- Patient ID: [facility]-[id number] Room: Gender: Asphalt Raker: : 1965 Requested By: CELSO AKERS Order Number: [id number] Reading MD: Dr. Celso Akers Measurements Intervals [place] Rate: 88 P: 49 [place]: 165 QRS: 68 QRSD: 87 T: 43 QT: 360 QTc: 436 Interpretive Statements Sinus rhythm Electronically Signed On 01-30-2025 10:27:[address] Celso Akers Please click the below link to view image of tracing. Chest X-Ray : Views: 1 VIEW Additional Comments CHEST RADIOGRAPH Indication: CP Technique: DI CHEST,SINGLE VIEW Comparison: None FINDINGS: The cardiac silhouette is unremarkable. The lungs demonstrate no pulmonary airspace consolidation. 3 mm right lower lobe calcified nodule, consistent with remote granulomatous disease. The pulmonary vasculature is unremarkable. There is no pleural effusion. There is no pneumothorax. IMPRESSION: No pulmonary airspace consolidation. Electronically Signed by:FELECIA KEEN MD Date & Time: 01/30/25929 Dictated by: FELECIA KEEN MD Dictation date and time: 01/30/25919 Medical Decision Making Additional info obtained from: old records General Diff Dx:Considerations: Include: Abrasion, Contusion, Fracture, Hematoma, Laceration, Malunion, Neurovascular injury, Open fracture, Sprain, Ulcer, Other Departure Admitted to Inpatient Unit: yes, to hospitalist Admission Level of Care: Med/Surg with Tele Impression: Primary Impression: Generalized weakness Additional Impressions: Medical non-compliance Accelerated hypertension Diabetic acetonemia Condition: Fair Referrals: NO PRIMARY CARE PROVIDER (PCP) Education Educated: Patient Educated regarding: diagnosis Signature Scribe Signature: . Attestation: The note accurately reflects work and decisions made by me.Celso Akers MD 01/30/25 10:46 CELSO AKERS MD Jan 30, 2025 10:44
[2025-01-30] MEDS ORDERED: HYDROcodone/acetaminophen 5mg/325mg tablet PO PRN (11:25)
[2025-01-30] MEDS ORDERED: potassium Cl 20 mEq SR tablet PO PRN ×2 (11:25)
[2025-01-30] MEDS ORDERED: ondansetron/PF 4mg/2ml inj IV PRN (11:25)
[2025-01-30] MEDS ORDERED: magnesium hydroxide 30ml (MOM) UD suspension PO PRN (11:25)
[2025-01-30] MEDS ORDERED: potassium Cl 40MEQ/1/2NS 520ml 520 ML IV PRN (11:25)
[2025-01-30] MEDS ORDERED: mag hydrox/Alum hydrox/simeth 30ml oral suspension PO PRN (11:25)
[2025-01-30] MEDS ORDERED: magnesium Cl slow-release 64mg tablet PO PRN (11:25)
[2025-01-30] MEDS ORDERED: magnesium sulf-water 2g/50mL 50 ML IV PRN (11:25)
[2025-01-30] MEDS ORDERED: magnesium sulf-water 4G/100mL 100 ML IV PRN (11:25)
[2025-01-30] MEDS: furosemide 10 MG/1 ML 10ml inj IV ONE (11:48)
--- NOTE | 2025-01-30 14:53 | HISTORY AND PHYSICAL-Residence ---
History & Physical Providers to CC Resident Creating Document: SOMMER RODRIGUEZVANI, RES ~ History of Present Illness Primary Medical Doctor: [facility] Reason for Admit\Complaint: Shortness of breath History of Present Illness This is a 59-year-old male with past history of type 2 diabetes, paraumbilical hernia status post mesh repair, cholecystectomy came to the ER with bilateral leg swelling associated with pain. The patient complains of progressive leg swelling since one week associated with pain, which increases on walking and by the end of the day and is relieved when he elevates his leg. He also complains of shortness of breath on exertion which has been progressively worsening since two months. He can only walk 50 yd after which he needs to stop and catch his breath associated with dizziness. He has no complaints of chest pain, palpitation, syncopal episodes associated with it. He has not taken his diabetic medication , metformin 500 mg since over one month as he was trying to find a new PCP closer his location. 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 HEENT: Conjunctive are pink, sclerae clear, no icterus, pupil is equal in both sides, reactive to light, no ear discharge, no pharyngeal erythema or an edema, mouth and lips are dry. Neck: Supple, no JVD, no lymphadenopathy and thyromegaly. Lungs:Equal air entry on both lungs, no additional sounds Heart: S1-S2 regular sinus rhythm and, regular rate, no gallops, no rubs, no murmurs Abdomen: Soft nontender, no visible peristalsis. Midline scar present above the umbilicus Extremities: Bilateral pitting pedal edema up to mid shaft. All peripheral pulses felt. Peripheries warm. MOHS SURGEON/GENERAL DERMATOLOGIST: No focal neurological deficits, no motor and sensory weakness in all 4 extremities, could move all 4 extremities Musculoskeletal: No joint swelling, deformities, inflammations, and no scoliosis and back tenderness Skin: No active skin lesions and rashes Diagnostic Data Last Recorded Lab Results: 01/30/2590501/30/25 09 Counseling Services Smoking & Tobacco Cessation: N/A Advance Care Planning Advanced Care plannin - 30 Minutes (Full code) Additional Plan This is a 59-year-old male with past history of type 2 diabetes, paraumbilical hernia status post mesh repair, cholecystectomy came to the ER with bilateral leg swelling associated with pain Plan: Leg swelling most likely due to congestive heart failure Systolic blood pressure ranging from 150s to 130s Chest x-ray:No pulmonary airspace consolidation. NT proBNP less than 30, troponin negative, EKG normal Ordered echo, orthostatic vitals Creatinine 0.99 BUN 13 Started Lasix 40 mg p.o. b.i.d., aspirin 81 mg p.o. daily Continue to monitor heart rate and blood pressure Type 2 diabetes mellitus Blood glucose 138, ordered HGB A1c Continue metformin 500 mg p.o. daily CODE STATUS: Full code DVT prophylaxis: SCDs Analgesia/sedation: Acetaminophen PRN Lines/tubes: PIV GI prophylaxis: None Nutrition: 75 mg carb controlled diet Prognosis: Guarded Disposition: Admit to PCU/telemetry continue medical management Isadora Rodriguez MD Internal Medicine Resident, PGY1 [facility] Date of Service: Jan 30, 2025 Billing Provider: STU REDDY MD Common Visit Codes: [id number] INP/OBS CARE (HIGH) Secondary Visit Codes: [id number] CARE PLAN 30 MINUTES ISADORA RODRIGUEZ, RAJIV Jan 30, 2025 14:53 STU REDDY MD Feb 01, 2025 07:47
[2025-01-30 14:55] VITALS: BP 159/85; PULSE 85; RESP 14; TEMP 97.2; O2SAT 95
[2025-01-30 15:09] VITALS: RESP 14; O2SAT 95
[2025-01-30 18:00] VITALS: BP 158/81; PULSE 82; RESP 19; TEMP 98.6; O2SAT 96
[2025-01-30] MEDS ORDERED: DEXTROSE 15 GM of carb/4 tabs (each vial/BOTTLE has 4 tablets) PO PRN ×2 (19:20)
[2025-01-30] MEDS ORDERED: glucagon, human recombinant 1mg kit SUBCUT PRN (19:20)
[2025-01-30] MEDS ORDERED: dextrose 50%-water 50ml dispensing syringe IV PRN ×2 (19:20)
[2025-01-30 20:00] VITALS: RESP 19; O2SAT 96
[2025-01-30] MEDS: docusate sod 100mg capsule PO SCH (20:00)
[2025-01-30] MEDS: K and/or MAG REPLACEMENT MC SCH (20:00)
[2025-01-30] MEDS: INSULIN LISPRO 100 UNIT/ML INSULN.PEN MULTI-DOSE SQ SCH (20:38)
[2025-01-30] MEDS: insulin glargine (Lantus) pen - multi-dose SQ SCH (20:39)
[2025-01-30 22:00] VITALS: BP 125/41; PULSE 76; RESP 20; TEMP 98.4; O2SAT 98
[2025-01-31] VITALS (8 sets, daily range): BP systolic 99–153; BP diastolic 46–79; PULSE 66–88; RESP 12–22; TEMP 97–98.6; O2SAT 93–99
[2025-01-31 06:31] LABS: MEAN PLATELET VOLUME 8.6 FL (7.4-10.4); RED CELL DISTRIBUTION WIDTH 14.1 % (11.5-14.5)
[2025-01-31 06:54] LABS: CREATININE 1.18 MG/DL (0.60-1.10); TOTAL CARBON DIOXIDE 26.6 MMOL/L (24-32); eCRCL 75 ML/MIN; eGFR 63 ML/MIN
[2025-01-31] MEDS: INSULIN LISPRO 100 UNIT/ML INSULN.PEN MULTI-DOSE SQ SCH (08:36)
[2025-01-31] MEDS: HYDROcodone/acetaminophen 10/325mg tab PO PRN (10:43)
--- NOTE | 2025-01-31 11:35 | RADIOLOGY REPORT ---
EXAM: DI FOOT,LIMITED (AP/LAT) CLINICAL INDICATION: left foot pain TECHNIQUE: DI FOOT,LIMITED (AP/LAT) Comparison: None FINDINGS/IMPRESSION: There is no evidence of acute fracture or dislocation. The visualized joint space is well maintained. The alignment is anatomical. There is no radiopaque foreign body.
--- NOTE | 2025-01-31 12:11 | VASCULAR REPORT ---
Left lower extremity venous duplex Clinical History: Pain Comparison: None Technique: Duplex Doppler evaluation of the deep venous system of the left lower extremity from the common femor al vein to the popliteal vein including color Doppler and spectral/pulsed waveform analysis was perfo rmed. Findings: The common femoral vein demonstrates appropriate compressibility and waveform variability. There is compressibility/patency of the great saphenous vein at the proximal thigh. The femoral vein demonstrates appropriate compressibility and waveform variability. The deep femoral vein demonstrates appropriate compressibility and waveform variability. The popliteal vein demonstrates appropriate compressibility and waveform variability. There is normal compressibility at the tibioperoneal trunk. Impression: No left femoropopliteal venous thrombosis. Contralateral common femoral vein is patent.
--- NOTE | 2025-01-31 13:30 | VASCULAR REPORT ---
Bilateral Lower Extremity Arterial Duplex Clinical History: Bilateral lower extremity pain Comparison: None Technique: Duplex Doppler evaluation including color Doppler and spectral/pulsed waveform analysis of the lower extremity arteries was performed. Findings: RIGHT: Peak systolic velocities are as follows: VP PRODUCT 127 cm/s Deep femoral 121 cm/s SFA proximal 110 cm/s SFA mid-portion 105 cm/s SFA distal 115 cm/s Popliteal 97 cm/s Posterior tibial 67 cm/s Anterior tibial 76 cm/s Peroneal 52 cm/s Dorsalis pedis 76 cm/s The waveforms are triphasic with diastolic flow. LEFT: Peak systolic velocities are as follows: VP PRODUCT 126 cm/s Deep femoral 88 cm/s SFA proximal 127 cm/s SFA mid-portion 116 cm/s SFA distal 114 cm/s Popliteal 85 cm/s Posterior tibial 92 cm/s Anterior tibial 91 cm/s Peroneal 75 cm/s Dorsalis pedis 91 cm/s The waveforms are triphasic with diastolic flow. IMPRESSION: No hemodynamically significant stenosis based on peak systolic velocity criteria. REFERENCE VALUES, [facility]) vascular Imaging Lab Criteria: Peak systolic velocity rang es (in cm/sec) are as follows: <150 cm/s - <20 % stenosis 150-200 cm/s - 20-49% stenosis 200-300 cm/s - 50-75% stenosis >300 cm/s -> 75% stenosis
--- NOTE | 2025-01-31 18:17 | CARDIOLOGY REPORT ---
APPROVED REPORT EXAM: Comprehensive 2D, Doppler, and color-flow Echocardiogram. Patient Location: 3016 A Blood Pressure: 159/85 mmHg Heart Rate: 75 bpm Rhythm: SINUS Indications SHORTNESS OF BREATH Party Plan Sales Unit Sales Leader: none [facility] 65-70%, trace MR, trace TR) 2D Dimensions RVDd 4.6 cm IVSd 1.4 (0.7-1.1cm) LVDd 3.9 cm PWd 1.4 (0.7-1.1cm) IVSs 1.3 (0.8-1.2cm) LVDs 2.7 (2.5-4.0cm) PWs 1.6 (0.8-1.2cm) LVOT Diameter 1.95 (1.8-2.4cm) LVEF(%) 57.8 (>50%) Ao Asc Diam.3.15 cm FS (%) 30.0 % SV 38.3 ml CO 2.8 L/min M-Mode Dimensions Left Atrium(MM) 3.42 (2.5-4.0cm) Aortic Root 2.84 (2.2-3.7cm) Aortic Cusp Exc 1.89 (1.5-2.0cm) Biplane 2D LA Volumes LA ESV Index 19.21 mL/m2 Aortic Valve AoV Peak Curtis. 128.5 cm/s AoV VTI 21.5 cm AO Peak GR. 6.6 mmHg AO Mean GR. 4 mmHg LVOT VTI 21.79 cm LVOT Peak Curtis. 103.9 cm/s ALEXANDRA(VTI)/BSA 3.03 cm2/m2 ALEXANDRA (VTI) 3.03 cm2 Mitral Valve MV E Velocity 96.8 cm/s MV Peak Gr. 3 mmHg MV DECEL TIME 232 ms MV A Velocity 90.1 cm/s MV PHT 44 ms E/A Ratio 1.1 MVA (PHT) 5.00 cm2 MV VMax90.9 cm/s TDI Medial E' P. V 8.96 cm/s E/Medial E' 10.8 Pulmonary Vein S1 Velocity 47.4 cm/s D2 Velocity 40.4 cm/s PVa Fosegulg15.2 cm/s PVa [id number] msec LEFT VENTRICLE Normal LV size and function. Moderate concentric hypertrophy. LVEF is 55-60%. RIGHT VENTRICLE RV is moderately dilated in size with normal function. ATRIA LA size is normal. AORTIC VALVE Trileaflet AV appears mildly sclerotic without stenosis or insufficiency. MITRAL VALVE Mild MV annular calcification without stenosis. Trace regurgitation. TRICUSPID VALVE TV appears structurally normal with trace regurgitation. PULMONIC VALVE Normal PV without stenosis, physiologic insufficiency. GREAT VESSELS Aortic root is normal in size. Ascending aorta is normal in size. PERICARDIUM Normal pericardium. No effusion. Other Information Study Quality: Adequate Conclusion Normal LV size and function. Moderate concentric hypertrophy. LVEF is 55-60%. RV is moderately dilated in size with normal function. LA size is normal. Trileaflet AV appears mildly sclerotic without stenosis or insufficiency. Mild MV annular calcification without stenosis. Trace regurgitation. TV appears structurally normal with trace regurgitation. Normal pericardium. No effusion.
--- NOTE | 2025-01-31 19:08 | PROGRESS NOTE- Residence ---
Progress Note - Resident Providers to CC Resident Creating Document: EUGENE PINA RES ~ Antibiotic Timeout Antibiotic Ordered?: No Subjective Patient seen and examined at the bedside, denied any shortness of breath chest pain or any new symptoms. Left side Lower extremity edema has been improving however he still have right side lower extremity edema Objective Vital Signs Date Time Temp Pulse Resp B/P (MAP) Pulse Ox O2 Delivery O2 Flow Rate FiO2 01/31/25 16:05 93 Room Air* 0 21 01/31/25 15:00 98.2 87 16 137/79 (98) Result Diagram: 01/31/25 0601 01/31/25 0601 General: Awake and Alert, no acute distress. HEENT: Conjunctiva pink, Sclera clear, Mucus Membranes moist. Neck: Supple without masses and tenderness. Resp: Lungs clear to auscultation bilaterally. Heart: Regular Rate and rhythm, normal S1 and S2 without murmur, rub or gallop. Abdomen: Soft and non tender no organomegaly Extremities: Left foot swelling mildly extended to the vicente Skin: Warm and Dry. Neurological: Speech is clear, alert, and oriented x 4, no gross neurological deficits Plan Plan This is a 59-year-old male with past history of type 2 diabetes, paraumbilical hernia status post mesh repair, cholecystectomy came to the ER with bilateral leg swelling associated with pain Leg swelling left more than right less likely due to congestive heart failure, patient did not have any shortness of breath orthopnea or crackle on auscultation, normal proBNP and normal chest x-ray There is no any sign of infection no leukocytosis, ESR is normal, procalcitonin is normal Systolic blood pressure ranging from 150s to 130s NT proBNP less than 30, troponin negative, EKG normal Echo: Normal LV size and function. Moderate concentric hypertrophy. LVEF is 55- 60%. RV is moderately dilated in size with normal function. LA size is normal. Trileaflet AV appears mildly sclerotic without stenosis or insufficiency. Mild MV annular calcification without stenosis. Trace regurgitation. TV appears structurally normal with trace regurgitation. Normal pericardium. No effusion. Creatinine 0.99 BUN 13 Received one dose Lasix in ED and today 20, I&Os is negative 1400 Doppler negative for DVT, foot x-ray negative for any acute pathology Uric acid and arterial Doppler ordered Type 2 diabetes mellitus Blood glucose 138, ordered HGB A1c We DC metformin, on sliding scale CODE STATUS: Full code DVT prophylaxis: SCDs Analgesia/sedation: Acetaminophen PRN Lines/tubes: PIV GI prophylaxis: None Nutrition: 75 mg carb controlled diet Prognosis: Guarded Eugene Pina MD Internal Medicine resident Date of Service: Jan 31, 2025 Billing Provider: STU REDDY MD Common Visit Codes: [id number] INP/OBS CARE(HIGH) EUGENE PINA, RES Jan 31, 2025 19:08 STU REDDY MD Feb 01, 2025 07:48
[2025-02-01 02:00] VITALS: BP 151/63; PULSE 81; RESP 20; TEMP 97.7; O2SAT 91
[2025-02-01 06:14] LABS: MEAN PLATELET VOLUME 8.2 FL (7.4-10.4); RED CELL DISTRIBUTION WIDTH 13.7 % (11.5-14.5)
[2025-02-01 06:21] LABS: CREATININE 1.04 MG/DL (0.60-1.10); TOTAL CARBON DIOXIDE 26.8 MMOL/L (24-32); eCRCL 85 ML/MIN; eGFR 73 ML/MIN
[2025-02-01 07:00] VITALS: BP 122/59; PULSE 75; RESP 16; TEMP 98; O2SAT 97
[2025-02-01 11:00] VITALS: BP 140/83; PULSE 95; RESP 20; O2SAT 95
[2025-02-01] MEDS ORDERED: EMPA10TA PO (11:14)
[2025-02-01] MEDS ORDERED: FURO-150 PO (11:14)
[2025-02-01] MEDS ORDERED: PRED10TA23 PO ×2 (11:16→11:17)
[2025-02-01 11:32] VITALS: O2SAT 95
--- NOTE | 2025-02-01 18:55 | DISCHARGE SUMMARY-Residence ---
Discharge Summary Providers to CC Resident Creating Document: ISADORA ANGULO RES ~ Discharge Summary Admission Diagnosis: Anginal pain Hospital Course DATE OF ADMISSION: 01/30/2025 DATE OF DISCHARGE: 02/01/2025 Discharge Diagnosis\Comment: Pedal edema most likely due to acute on chronic heart failure Type 2 diabetes mellitus Paraumbilical hernia status post mesh repair Cholecystectomy Operations\Procedures: None Consultants: None Complications: None Condition on DC: Stable New Medications: Empagliflozin (Jardiance) 10 Mg Tablet 1 TAB PO DAILY for 30 Days, #30 TAB 0 Refills Furosemide (Lasix) 20 Mg Tablet 20 MG PO DAILY for 30 Days, #30 TAB Prednisone (Prednisone) 10 Mg Tablet 2 TABLET PO DAILY for 4 Days, #8 TABLET Discontinued Medications: Metformin Hcl (Metformin Hcl) 500 Mg Tablet 1 TAB PO Q12H for 30 Days, #60 TAB 0 Refills Discharge Summary: History of present illness: This is a 59-year-old male with past history of type 2 diabetes, paraumbilical hernia status post mesh repair, cholecystectomy came to the ER with bilateral leg swelling associated with pain. The patient complained of progressive leg swelling since one week associated with pain, which increases on walking and by the end of the day and is relieved when he elevates his leg. He also complained of shortness of breath on exertion which has been progressively worsening since two months. He can only walk 50 yd after which he needs to stop and catch his breath associated with dizziness. He had no complaints of chest pain, palpitation, syncopal episodes associated with it. He had not taken his diabetic medication , metformin 500 mg since over one month as he was trying to find a new PCP closer his location. Hospital course: Patient was administered Lasix trial after which he has urine output and leg swelling improved and he was at a -1400 balance of total input and output. EKG, chest x-ray, echo was normal. Troponin was negative and NT proBNP was less than 30. DVT and arterial blood clot was ruled out with Doppler. All his physical examination and lab reports were in the normal range. He is hemodynamically stable and we are discharging him on Lasix 20 mg p.o. daily and Jardiance 10 mg p.o. daily for heart failure and diabetes. Vital Signs Date Time Temp Pulse Resp B/P (MAP) Pulse Ox O2 Delivery O2 Flow Rate FiO2 02/01/25 11:32 95 Room Air* 0 21 02/01/25 11:00 95 20 140/83 (102) 02/01/25 07:00 98.0 Physical examination: General: Well alert, well oriented, not confused, not agitated, not in acute distress, well cooperated during the physical. HEENT: Conjunctive are pink, sclerae clear, no icterus, pupil is equal in both sides, reactive to light, no ear discharge, no pharyngeal erythema or an edema, mouth and lips are dry. Neck: Supple, no JVD, no lymphadenopathy and thyromegaly. Lungs:Equal air entry on both lungs, no additional sounds Heart: S1-S2 regular sinus rhythm and, regular rate, no gallops, no rubs, no murmurs Abdomen: Soft nontender, no visible peristalsis. Midline scar present above the umbilicus Extremities: Bilateral pitting pedal edema up to mid shaft. All peripheral pulses felt. Peripheries warm. 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, no motor and sensory weakness in all 4 extremities, could move all 4 extremities Musculoskeletal: No joint swelling, deformities, inflammations, and no scoliosis and back tenderness Skin: No active skin lesions and rashes Laboratory Tests Test 01/30/25 20:21 01/31/25 06:01 01/31/25 11:14 01/31/25 13:00 Glucometer 171 mg/dl 107 mg/dl White Blood Count 6.8 X10'3 Red Blood Count 4.76 X10'6 Hemoglobin 14.4 g/dl Hematocrit 42.0 % Mean Corpuscular Volume 88.1 FL Mean Corpuscular Hemoglobin 30.2 PG Mean Corpuscular Hemoglobin Concent 34.3 g/dL Red Cell Distribution Width 14.1 % Platelet Count 252 X10'3 Mean Platelet Volume 8.6 FL Neutrophils (%) (Auto) 58.0 % Lymphocytes (%) (Auto) 28.1 % Monocytes (%) (Auto) 10.1 % Eosinophils (%) (Auto) 2.5 % Basophils (%) (Auto) 1.3 % Neutrophils # (Auto) 4.0 X10'3 Lymphocytes # (Auto) 1.9 X10'3 Monocytes # (Auto) 0.7 X10'3 Eosinophils # (Auto) 0.2 X10'3 Basophils # (Auto) 0.1 X10'3 CBC Comment Sodium Level 138 MMOL/L Potassium Level 4.0 MMOL/L Chloride Level 103 MMOL/L Carbon Dioxide Level 26.6 MMOL/L Anion Gap 8 Blood Urea Nitrogen 18 MG/DL Creatinine 1.18 MG/DL Estimated GFR/1.73 m2 63 ML/MIN BUN/Creatinine Ratio 15.3 Glucose Level 174 MG/DL Uric Acid 6.5 MG/DL Calcium Level 8.9 MG/DL Magnesium Level 2.1 MG/DL Total Bilirubin 0.3 MG/DL Aspartate Amino Transf (AST/SGOT) 16 U/L Alanine Aminotransferase (ALT/SGPT) 29 U/L Alkaline Phosphatase 79 IU/L Total Protein 6.7 G/DL Albumin 3.4 G/DL Globulin 3.3 G/DL Albumin/Globulin Ratio 1.0 Procalcitonin < 0.05 NG/ML Chemistry Comments Erythrocyte Sedimentation Rate 7 MM/HR C-Reactive Protein 0.25 MG/DL Test 01/31/25 17:15 01/31/25 20:13 02/01/25 05:50 Glucometer 112 mg/dl 127 mg/dl White Blood Count 6.4 X10'3 Red Blood Count 4.72 X10'6 Hemoglobin 14.0 g/dl Hematocrit 41.5 % Mean Corpuscular Volume 87.9 FL Mean Corpuscular Hemoglobin 29.8 PG Mean Corpuscular Hemoglobin Concent 33.8 g/dL Red Cell Distribution Width 13.7 % Platelet Count 266 X10'3 Mean Platelet Volume 8.2 FL Neutrophils (%) (Auto) 54.4 % Lymphocytes (%) (Auto) 30.4 % Monocytes (%) (Auto) 10.9 % Eosinophils (%) (Auto) 3.2 % Basophils (%) (Auto) 1.1 % Neutrophils # (Auto) 3.5 X10'3 Lymphocytes # (Auto) 1.9 X10'3 Monocytes # (Auto) 0.7 X10'3 Eosinophils # (Auto) 0.2 X10'3 Basophils # (Auto) 0.1 X10'3 CBC Comment Sodium Level 138 MMOL/L Potassium Level 4.0 MMOL/L Chloride Level 103 MMOL/L Carbon Dioxide Level 26.8 MMOL/L Anion Gap 8 Blood Urea Nitrogen 19 MG/DL Creatinine 1.04 MG/DL Estimated GFR/1.73 m2 73 ML/MIN BUN/Creatinine Ratio 18.3 Glucose Level 110 MG/DL Calcium Level 8.8 MG/DL Magnesium Level 2.1 MG/DL Total Bilirubin 0.5 MG/DL Aspartate Amino Transf (AST/SGOT) 16 U/L Alanine Aminotransferase (ALT/SGPT) 24 U/L Alkaline Phosphatase 66 IU/L Total Protein 6.5 G/DL Albumin 3.4 G/DL Globulin 3.1 G/DL Albumin/Globulin Ratio 1.1 Chemistry Comments Imaging: Chest x-ray:No pulmonary airspace consolidation. Echo: Normal LV size and function. Moderate concentric hypertrophy. LVEF is 55- 60%. RV is moderately dilated in size with normal function. LA size is normal. Trileaflet AV appears mildly sclerotic without stenosis or insufficiency. Mild MV annular calcification without stenosis. Trace regurgitation. TV appears structurally normal with trace regurgitation. Normal pericardium. No effusion. Venous Doppler:No left femoropopliteal venous thrombosis. Contralateral common femoral vein is patent. Arterial Doppler: No hemodynamically significant stenosis based on peak systolic velocity criteria. Foot x-ray: There is no evidence of acute fracture or dislocation. The visualized joint space is well maintained. The alignment is anatomical. There is no radiopaque foreign body. Discharge course: Hemodynamically stable for discharge Follow up with the primary care provider in 1 week Advised strict medication adherence Furosemide 20 mg p.o. daily Jardiance 10 mg p.o. daily Prednisone 10 mg p.o. daily for 4 days Visit ER in case of any acute symptoms including breathlessness, chest pain, palpitation, dizziness, syncope, leg swelling. *Problems/Diagnosis: (1) Type 2 diabetes mellitus Status: Chronic (2) Paraumbilical hernia Status: Resolved (3) Hx of cholecystectomy Status: Resolved (4) Acute on chronic heart failure Status: Acute (5) Leg swelling Status: Acute Total Time Spent on D/C: > 30 Minutes Counseling Services Smoking & Tobacco Cessation: N/A Addendum ac on chr cor pulmonale poss KEON poss gout Date of Service: Feb 01, 2025 Billing Provider: STU REDDY MD Common Visit Codes: 62351-RCV/OBS DISCH DAY >30min ISADORA ANGULO, RES Feb 01, 2025 18:49 STU REDDY MD Feb 02, 2025 07:09
== END 2025-02-01 11:42 | disposition home or self-care (01) | DRG 194 ==
LOC: ER 08:34 → ED HOLD 11:26 → PCU 3S 14:33
PROVIDERS: ADMIT Internal Medicine; ATTEND Internal Medicine
DX: I11.0 Hypertensive heart disease with heart failure (principal); E78.00 Pure hypercholesterolemia, unspecified; E11.9 Type 2 diabetes mellitus without complications; I50.9 Heart failure, unspecified; Z91.148 Patient's other noncompliance with medication regimen for other reason; Z90.49 Acquired absence of other specified parts of digestive tract; Z86.73 Personal history of transient ischemic attack (TIA), and cerebral infarction without residual deficits; Z82.49 Family history of ischemic heart disease and other diseases of the circulatory system; Z91.199 Patient's noncompliance with other medical treatment and regimen due to unspecified reason; Z87.442 Personal history of urinary calculi
CPT/HCPCS: 36415; 71045; 73620; 80048; 80053; 80076; 82948; 83036; 83735; 83880; 84145; 84484; 84550; 85025; 85651; 86140; 87081; 93005; 93306; 93925; 93971; 99285; A6258; G0378; J1815; J1938; J2270; J7512

== ENCOUNTER 2025-03-23 11:51 | Emergency (ER) | payer MEDICAID ==
[~2025-03-23] VITALS: Ht 185.4 cm; Wt 129.6 kg
[~2025-03-23 11:51] MED LIST changes: +EMPA10TA PO; +FURO-150 PO; -METF-1203 PO; -METF-436 PO; +PRED10TA23 PO
--- NOTE | 2025-03-23 12:03 | Physician Documentation ---
History of Present Illness ~ Stated Complaint: FALL/VOMITING Time Seen by MD: 12:22 Primary Medical Doctor: [facility] HPI 59-year-old male with a history of diabetes who presents today after a fall. He reports that he tripped over his dog, falling down six metal stairs. Pain is to the thoracic back, he does endorse shortness of breath, he also notes that a deep breath makes the pain worse. He further notes that he has felt unwell all week, and has had vomiting. Glucose this morning was in the 30s, he tried to eat something but threw it up. Tetanus within 5 Years?: Yes Medication Reconciliation Allergies: Coded Allergies: glyburide (Verified Allergy, Unknown, 03/23/25) Scheduled Empagliflozin (Jardiance), 1 TAB PO DAILY Furosemide (Lasix), 20 MG PO DAILY Prednisone (Prednisone), 2 TABLET PO DAILY Past Medical History Past Medical History: High Cholesterol, Hypertension, Bronchitis, Pneumonia, Hernia, Kidney Stones, Diabetes Past Surgical History: cholecystectomy, other Other Past Surgical History: hernia repair Patient History: FH: CVA (cerebrovascular accident) PGF FH: myocardial infarction FATHER Alcohol Use: Occasionally Drug Use: none Lives with: Alone Lives In: Home Occupation: other Review of Systems ROS As stated above in the HPI, otherwise all systems are reviewed and negative. Physical Exam Physical Exam General: Alert, appears to be in acute distress with difficulty breathing. Neck: Full range of motion. Neurologic: Oriented x4. Psychiatric: Normal mood and affect. Skin: Normal color, warm and dry. No edema, no ecchymosis. MSK; +TTP low t-spine Pulm: CTAB Cardiac: RRR no m/c/r Progress Results/Orders Results/Orders Orders - WILLIAM HUTTON MD Chest,Single View (03/23/25 13:02) Ct Thoracic Spine (03/23/25 13:26) Completed Orders - WILLIAM HUTTON MD Chest,Single View (03/23/25 13:02) Ct Thoracic Spine (03/23/25 13:26) Ketorolac Trometh 30mg/Ml Vial (Toradol (03/23/25 13:10) Diazepam Tablet (Valium Tablet) (03/23/25 13:10) Medications Received in ER Medications (Trade) Dose Ordered Sig/Jovita Route PRN Reason Start Time Stop Time Status Last Admin Dose Admin Sodium Chloride 1,000 ml @ 1,000 mls/hr ONCE ONCE IV 03/23/25 12:10 03/23/25 13:09 DC 03/23/25 12:30 1,000 MLS/HR (Zofran 4mg/2ml vial) 4 mg ONCE ONCE IV 03/23/25 12:10 03/23/25 12:11 DC 03/23/25 12:27 4 MG (Dilaudid inj.) 0.5 mg ONCE ONCE IV 03/23/25 12:15 03/23/25 12:16 DC 03/23/25 12:27 0.5 MG (Toradol inj. 30mg/ml) 30 mg ONCE ONCE IM 03/23/25 13:10 03/23/25 13:11 DC 03/23/25 13:35 30 MG (Valium tablet) 5 mg ONCE ONCE PO 03/23/25 13:10 03/23/25 13:11 DC 03/23/25 13:36 5 MG Vital Signs 03/23/25 03/23/25 03/23/25 03/23/25 12:04 12:27 12:34 12:35 Temp 97.8 97.8 Pulse 106 98 Resp 18 18 22 13 B/P (MAP) 135/91 160/96 (117) Pulse Ox 97 95 O2 Flow Rate 0 03/23/25 03/23/25 03/23/25 03/23/25 13:30 13:35 13:36 14:22 Temp 97.8 Pulse 87 84 Resp 16 18 22 20 B/P (MAP) 147/94 (111) 147/81 (103) Pulse Ox 98 95 O2 Flow Rate 0 0 Laboratory Tests Test 03/23/25 12:18 03/23/25 12:19 03/23/25 13:43 Glucometer 155 H 110 H White Blood Count 8.7 Red Blood Count 5.14 Hemoglobin 15.3 Hematocrit 45.9 Mean Corpuscular Volume 89.4 Mean Corpuscular Hemoglobin 29.8 Mean Corpuscular Hemoglobin Concent 33.4 Red Cell Distribution Width 13.6 Platelet Count 327 Mean Platelet Volume 8.6 Neutrophils (%) (Auto) 70.0 Lymphocytes (%) (Auto) 17.7 L Monocytes (%) (Auto) 10.2 Eosinophils (%) (Auto) 1.0 Basophils (%) (Auto) 1.1 H Neutrophils # (Auto) 6.1 Lymphocytes # (Auto) 1.5 Monocytes # (Auto) 0.9 Eosinophils # (Auto) 0.1 Basophils # (Auto) 0.1 CBC Comment Sodium Level 139 Potassium Level 4.3 Chloride Level 104 Carbon Dioxide Level 24.7 Anion Gap 10 Blood Urea Nitrogen 13 Creatinine 1.23 H Estimated GFR/1.73 m2 60 BUN/Creatinine Ratio 10.6 Glucose Level 148 H Calcium Level 9.5 Troponin I High Sensitivity 5 Albumin 3.8 Chemistry Comments Medical Decision Making Findings 59 year old male s/p fall down stairs, suffering from intermittent low t-spine pain/spasms. CT T spine did not demonstrate fractures. Remainder of workup was unremarkable. Will road test and discharge with return precautions. Differential Dx:Considerations: Include: Closed head injury, Cardiac injury, Fracture(s), Pneumothorax, Spine injury, Contusion(s), Hematoma(s), Encephalopathy Departure Disposition: 01 HOME / SELF CARE / HOMELESS Impression: Primary Impression: Thoracolumbar back pain Condition: Stable Discharge Instructions: Fall Prevention in the Home, Adult, [id number] Referrals: NO PRIMARY CARE PROVIDER (PCP) Education Educated: Patient Educated regarding: diagnosis, treatment, prognosis, need for follow up Signature Scribe Signature: x Attestation: The note accurately reflects work and decisions made by me.Shana Maldonado NP 03/23/25 12:06 SHANA CLARK NP Mar 23, 2025 12:03 WILLIAM HUTTON MD Mar 23, 2025 15:18
[2025-03-23] MEDS ORDERED: morphine 4 MG/ML inj SYRINge IV ONE (12:10)
[2025-03-23] MEDS: dextrose 50%-water 50ml dispensing syringe IV ONE (12:24)
[2025-03-23] MEDS: HYDROmorphone inj. 0.5 MG/0.5 ML DISP.SYRIN IV ONE (12:27)
[2025-03-23] MEDS: ondansetron/PF 4mg/2ml inj IV ONE (12:27)
[2025-03-23] MEDS: normal saline 1000ml 1,000 ML IV ONE (12:30)
[2025-03-23 12:44] LABS: MEAN PLATELET VOLUME 8.6 FL (7.4-10.4); RED CELL DISTRIBUTION WIDTH 13.6 % (11.5-14.5)
[2025-03-23 12:45] LABS: CREATININE 1.23 MG/DL (0.60-1.10); TOTAL CARBON DIOXIDE 24.7 MMOL/L (24-32); eCRCL 72 ML/MIN; eGFR 60 ML/MIN
--- NOTE | 2025-03-23 13:31 | RADIOLOGY REPORT ---
EXAM: DI CHEST,SINGLE VIEW HISTORY: chest pain COMPARISON: DI CHEST,SINGLE VIEW on DOS: 01/30/25, CHEST,SINGLE VIEW on DOS: 01/02/23 TECHNIQUE: Portable upright AP view of the chest was performed. FINDINGS: No pneumothorax or consolidative infiltrates. There is mild Central interstitial prominence. The heart is borderline enlarged. There is abundant overlying adipose tissue. IMPRESSION: Central interstitial prominence may be due to reactive airways disease or mild CHF. This appearance may be exaggerated by abundant overlying adipose tissue.
[2025-03-23] MEDS: ketorolac trometh 30MG/ML vial 30 MG/ML VIAL IM ONE (13:35)
--- NOTE | 2025-03-23 13:52 | RADIOLOGY REPORT ---
Indication: midline T-spine tenderness Technique: CT axial images of the thoracic spine are obtained without contrast. Coronal and sagittal reformats were obtained. Radiation Dose Information: CTDI volume is 28 mGy. Dose-length product is 1140 mGy*cm Comparison: None FINDINGS: Thoracic heights are maintained. [id number] multilevel disc space narrowing with endplate sclerosis, anterior osteophytosis. Facet articulations intact. Bilateral atelectasis. IMPRESSION: Gynw-[id number] thoracic degenerative disc disease.
--- NOTE | 2025-03-23 14:05 | ELECTROCARDIOGRAPH REPORT ---
[facility] Test Date: 2025-03-23 Test Time: 12:15:16 Pat Name: NADER AGUIRRE Department: EMERGENCY ROOM Room: Gender: M Hand Ironer: LANG : 1965 Requested By: MAUDE CLARK Order Number: [id number] Reading MD: Measurements Intervals [place] Rate: 96 P: 50 TX: 160 QRS: 46 QRSD: 82 T: 59 QT: 332 QTc: 420 Interpretive Statements Sinus rhythm Baseline wander in lead(s) V2 Please click the below link to view image of tracing.
[2025-03-23 14:22] VITALS: TEMP 97.8
[2025-03-23 15:43] VITALS: BP 137/89; PULSE 83; RESP 16; O2SAT 97
== END 2025-03-23 15:46 | disposition home or self-care (01) ==
LOC: ER 11:52
DX: M54.50 Low back pain, unspecified (principal); E11.9 Type 2 diabetes mellitus without complications; E78.00 Pure hypercholesterolemia, unspecified; I10 Essential (primary) hypertension; Z87.442 Personal history of urinary calculi; Z79.899 Other long term (current) drug therapy; Z88.8 Allergy status to other drugs, medicaments and biological substances; Z98.890 Other specified postprocedural states; Z90.49 Acquired absence of other specified parts of digestive tract; Z72.89 Other problems related to lifestyle; Z60.2 Problems related to living alone; W10.9XXA Fall (on) (from) unspecified stairs and steps, initial encounter; Y93.89 Activity, other specified; Y92.89 Other specified places as the place of occurrence of the external cause; Y99.8 Other external cause status
CPT/HCPCS: 36415; 71045; 72128; 80048; 82948; 84484; 85025; 93005; 96361; 96372; 96374; 96375; 99285; A6222; J1171; J1885; J2405; J7030; L0172; A6258